=== PATIENT | male | born 1945 | race Caucasian/White ===

== ENCOUNTER 2017-03-30 10:21 | Day surgery (SDC) | payer MEDICARE, BC ==
[~2017-03-30] VITALS: Ht 167.6 cm; Wt 63.5 kg
[~2017-03-30 10:21] MED LIST: ASPI-1159 PO; ATEN100T PO; ATOR10TA69 PO; CHOL20004 PO; CLON0.2T PO; CYAN1TAB18 PO; GLIP5TAB12 PO; HYDR-4134 PO; NEPVIT PO; NIFE60TA77 PO
[2017-03-30] MEDS ORDERED: SODIUM CHLORIDE 0.9% 500 ML IV ONE (12:00)
[2017-03-30 12:05] LABS: BASOPHILS % 2.4 % (0.0-2.0); EOSINOPHILS % 12.8 % (0.0-5.0); HEMATOCRIT. 30.1 % (42.0-52.0); HEMOGLOBIN. 10.1 g/dL (14.0-18.0); LYMPHOCYTES % 16.1 % (20.0-50.0); MEAN CORPUSCULAR HEMOGLOBIN 31.6 pg (28.0-32.0); MEAN CORPUSCULAR VOLUME 94.5 fL (80.0-94.0); MEAN PLATELET VOLUME 7.7 fl (7.4-10.4); MONOCYTES % 8.7 % (2.0-8.0); PLATELET 224 x1000/uL (130-400); RED BLOOD CELL COUNT 3.18 mill/uL (4.7-6.1); RED CELL DISTRIBUTION WIDTH 15.9 % (11.6-14.6)
[2017-03-30 12:07] LABS: PARTIAL THROMBOPLASTIN TIME 25.4 sec (23.4-31.0); PROTHROMBIN TIME 10.9 sec (9.4-11.6)
[2017-03-30] MEDS ORDERED: GELATIN SPONGE,ABSORBABLE SZ 100 ONE (12:08)
[2017-03-30] MEDS ORDERED: THROMBIN (BOVINE) 5000 UNITS/VIAL TOP ONE (12:09)
[2017-03-30] MEDS ORDERED: BACITRACIN ZINC 15GM TUBE TOP ONE (12:09)
[2017-03-30] MEDS ORDERED: HEPARIN SODIUM 1,000 UNIT/1ML VIAL IV ONE (12:09)
[2017-03-30] MEDS ORDERED: BUPIVACAINE HCL/PF 0.5% (5MG/ML) 10ML ONE (12:10)
[2017-03-30] MEDS ORDERED: BACITRACIN 50,000 UNITS/VIAL ONE (12:10)
[2017-03-30] MEDS ORDERED: LIDOCAINE HCL 1% 20ML VIAL (Pyxis) INJ ONE (12:10)
[2017-03-30] MEDS ORDERED: NORMAL SALINE 0.9% 10 ML SYR ONE (12:10)
== END 2017-03-30 15:00 | disposition home or self-care (01) ==
LOC: OR 10:21
PROVIDERS: ATTEND Surgery Vascular Surgery
DX: I12.0 Hypertensive chronic kidney disease with stage 5 chronic kidney disease or end stage renal disease (principal); E11.22 Type 2 diabetes mellitus with diabetic chronic kidney disease; N18.6 End stage renal disease; Z79.84 Long term (current) use of oral hypoglycemic drugs; Z87.891 Personal history of nicotine dependence; Z79.899 Other long term (current) drug therapy; M19.90 Unspecified osteoarthritis, unspecified site; Z79.82 Long term (current) use of aspirin
CPT/HCPCS: 36415; 36821; 71045; 80048; 85025; 85610; 85730; 93005; A4216; J1644; J3490; J7040